=== PATIENT | female | born 2000 | race Caucasian/White ===

== ENCOUNTER 2024-12-04 20:09 | Emergency (ER) | payer MEDICAID ==
[~2024-12-04] VITALS: Ht 170.2 cm; Wt 65.8 kg
[2024-12-04] MEDS ORDERED: IBUPROFEN 600 MG TABLET ONE (21:25)
[2024-12-04] MEDS: IBUPROFEN 600 MG TABLET PO ONE (21:27)
[2024-12-04 22:30] VITALS: BP 110/68; TEMP 98.1; O2SAT 98
== END 2024-12-04 22:30 | disposition home or self-care (01) ==
LOC: ER 20:12
DX: J98.6 Disorders of diaphragm (principal); R10.31 Right lower quadrant pain; R07.9 Chest pain, unspecified; Z91.018 Allergy to other foods
CPT/HCPCS: 71111-TC